=== PATIENT | female | born 1990 | race Two or more races ===

== ENCOUNTER 2019-01-20 16:18 | Emergency (ER) | payer SELFPAY ==
[~2019-01-20] VITALS: Ht 162.6 cm; Wt 61.2 kg
[2019-01-20 18:41] VITALS: BP 124/82
[2019-01-20] MEDS ORDERED: ACETAMINOPHEN 325 MG TAB PO ONE (20:45)
[2019-01-20] MEDS ORDERED: cefTRIAXone SODIUM 250 MG VL IM ONE (20:45)
[2019-01-20] MEDS ORDERED: AZITHROMYCIN 250 MG TAB PO ONE (20:45)
== END 2019-01-20 22:49 | disposition home or self-care (01) ==
LOC: ER 16:27
DX: R51 Headache (principal); M79.10 Myalgia, unspecified site; F17.210 Nicotine dependence, cigarettes, uncomplicated; F12.10 Cannabis abuse, uncomplicated; Z88.1 Allergy status to other antibiotic agents; Z88.0 Allergy status to penicillin; T74.21XA Adult sexual abuse, confirmed, initial encounter; Y93.89 Activity, other specified; Y99.8 Other external cause status; Y92.89 Other specified places as the place of occurrence of the external cause
CPT/HCPCS: 70450; 71250; 96372; 99284; J0696